=== PATIENT | male | born 1940 | race Caucasian/White ===

== ENCOUNTER 2024-01-05 00:34 | Inpatient (IN) | payer MEDICARE, BC ==
[2024-01-05] VITALS (18 sets, daily range): BP systolic 97–121; BP diastolic 48–71; PULSE 75–114; TEMP 97.5–98.4
[~2024-01-05] VITALS: Ht 177.8 cm; Wt 116.0 kg
[2024-01-05] MEDS ORDERED: Morphine 4 MG/ML VIAL IV PRN ×2 (02:15→15:45)
[2024-01-05] MEDS ORDERED: NS 1,000 ML IV SCH (02:15)
[2024-01-05] MEDS ORDERED: Acetaminophen 325 MG TAB PO PRN ×2 (02:15)
[2024-01-05] MEDS ORDERED: NS 500 ML IV ONE (03:00)
[2024-01-05] MEDS ORDERED: SYNTHROID0.05 MG/TA PO (03:18)
[2024-01-05] MEDS ORDERED: HYGROTON 2525 MG/TAB PO (03:20)
[2024-01-05] MEDS ORDERED: FARXIGA10 PO (03:21)
[2024-01-05] MEDS ORDERED: HCTZ 25MG TAB25 MG PO (03:21)
[2024-01-05] MEDS ORDERED: COZAAR100 MG PO (03:23)
[2024-01-05] MEDS ORDERED: MAG-OX 400400 MG/TAB PO (03:24)
[2024-01-05] MEDS ORDERED: LOPRESSOR 225 MG/TAB PO (03:25)
[2024-01-05 03:26] LABS: BASO % 0.3 % (0.0-2.0); GRAN # 8.1 K/mm3 (1.4-6.5); GRAN % 83.2 % (42.2-75.2); HEMATOCRIT 38.4 % (42.0-52.0); LYMPH # 0.7 K/mm3 (1.2-3.4); LYMPH % 7.1 % (20.0-51.0); MEAN CELL VOLUME 97 fl (80.0-100.0); MEAN CORPUSCULAR HEMOGLOBIN 30 pg (27-31); MEAN CORPUSCULAR HGB CONC 31 g/dl (33.0-37.0); MONO # 0.9 K/mm3 (0.1-0.6); MONO % 9.1 % (1.7-9.3); PLATELET COUNT 159 K/mm3 (130-400); RED BLOOD COUNT 3.95 M/mm3 (4.20-5.60); REDCELL DISTRIBUTION WIDTH-CV 14.5 % (11.5-14.5)
[2024-01-05] MEDS ORDERED: ACTOS30 MG PO (03:26)
[2024-01-05] MEDS ORDERED: ZOCOR5 MG PO (03:27)
[2024-01-05 03:47] LABS: ALBUMIN 2.5 g/dL (3.4-4.8); BILIRUBIN,TOTAL 0.9 mg/dL (0.2-1.2); CALCIUM 8.5 mg/dL (8.4-10.2); POTASSIUM 4.8 mEq/L (3.5-4.5); TOTAL PROTEIN 5.5 g/dl (6.2-8.1)
[2024-01-05 04:13] LABS: CREATININE, serum 2.27 mg/dL (0.72-1.25)
--- NOTE | 2024-01-05 05:30 | NUR ---
PT ARRIVED TO THE SURICAL FLOOR AROUND 0200HRS TO ROOM 345. PT A&O X 4; INITIAL VITAL SIGNS SHOWED PT TO BE HYPOTENSIVE AND TACHY, RENDERING PT A MEW SCORE OF 4. HOSPITALIST CALLED. 500ML BOLUS ORDERED AND GIVEN. PT'S VS IMPROVED. ADMISSIONS ASSESSMENT AND MED REC COMPLETE. PT ORIENTED TO ROOM AND HOSPITAL POLICY. PT DENIED GENERAL PAIN, CHEST PAIN, PALPITATIONS, SOB, N,V,D OR DIZZINESS. ALL QUESTIONS AND CONCERNS ADDRESSED. PT NPO; FALL PERCAUTIONS IN PLACE. BED ALARM ON. CALL LIGHT WITHIN REACH.
[2024-01-05] MEDS ORDERED: fentaNYL 50 MCG/ML 1 ML SYRINGE/VIAL [PACU/SDC ONLY] IV PRN (09:00)
[2024-01-05] MEDS ORDERED: Pantoprazole 40 MG in NS 10 ML IV SCH (09:00)
[2024-01-05] MEDS ORDERED: hydrALAZINE 20 MG/ML 1 ML VIAL IV PRN (09:00)
[2024-01-05] MEDS ORDERED: Ondansetron 4 MG/2 ML VIAL IV PRN ×2 (09:00→15:45)
--- NOTE | 2024-01-05 10:39 | NUR ---
Patient resting in bed, supportive family at bedside. has rounded and plan of care reviewed. Morphine treated RLQ pain. IVF as order. He has remained NPO. Denies nausea at this time. Davina nathan. Will monitor.
--- NOTE | 2024-01-05 11:00 | NUR ---
Patient ready for surgery, to the OR with Cinthia and with family to OR waiting room. NS to Bety. blood glucose 83, Cinthia made aware. Consent obtained for OR after patient spoke with . Rony up and voided prior to OR. will await his return
--- NOTE | 2024-01-05 11:54 | NUR ---
MARY BETH met with patient and his family to complete initial assessmnet for discharge planning. Patient consented to have family present for assessment. Patient verified that he and his Yaquelin live in [place], he sees Dr. Skyler Adams as his PCP and uses [facility] pharmacy in [place]. Patient states he has a cane, walker, shower chair, grab bars and toilet riser. Patient reports to be "mostly independent" and continues to drive himself to appointments. Patient states he has a completed DPOA listing his Yaquelin ([phone]) as his agent. His document is at home and family was encouraged to bring copy for patient's chart. Patient plans to return home at discharge. Discharge plan: Home
[2024-01-05] MEDS ORDERED: dexAMETHasone 10 MG/ML VIAL ONE (12:18)
[2024-01-05] MEDS ORDERED: fentaNYL 50 MCG/ML 2 ML VIAL ONE ×2 (12:18→15:17)
[2024-01-05] MEDS ORDERED: Succinylcholine PF 200 MG/10 ML SYRINGE IV ONE (12:18)
[2024-01-05] MEDS ORDERED: Lidocaine PF 2% (20 MG/ML) 5 ML VIAL ONE (12:18)
[2024-01-05] MEDS ORDERED: Ondansetron 4 MG/2 ML VIAL ONE (12:18)
[2024-01-05] MEDS ORDERED: ePHEDrine 50 MG/ML VIAL ONE (12:39)
--- NOTE | 2024-01-05 13:52 | NUR ---
Data: Purchasing Assistant spoke with family in surgery waiting area. Assessment: Family indicated no spiritual needs at this time. Plan of Care: Purchasing Assistant educated family members to request Purchasing Assistant support through the RN if desired at a later time. Family members thanked Purchasing Assistant for the visit. Chaplains will remain available as requested while this Patient is admitted to this hospital.
[2024-01-05] MEDS ORDERED: Indocyanine Green 25 MG KIT IV ONE (15:00)
[2024-01-05] MEDS ORDERED: Topical Skin Adhesive 1 EACH (1 ML) TOP ONE (15:23)
[2024-01-05] MEDS ORDERED: oxyCODONE 5 MG TAB PO PRN (15:45)
[2024-01-05] MEDS ORDERED: LR 1,000 ML IV SCH (15:45)
[2024-01-05] MEDS ORDERED: Naloxone 0.4 MG/ML VIAL IV PRN (15:45)
[2024-01-05] MEDS ORDERED: Acetaminophen 500 MG TAB PO SCH (16:38)
--- NOTE | 2024-01-05 18:36 | NUR ---
Patient resting in bed post op. Family as bedside. He has been sleepy, but easy to wake. Vss on O2. He reports nausea. Zofran PRN given. Reports abdominal pain throughout abdomen. Prn morphine given, patient reports no relief from tylenol as scheduled. Abdomen soft with robotic lap site and transverse incisions edges well approximated. Rob to DD with yellow clear urine. Scds BLE. IVF as ordered. Will report off to nightnurse
--- NOTE | 2024-01-05 20:35 | NUR ---
UPON SHIFT ASSESSMENT, PATIENT WAS AWAKE AND AXO X4. LAP SITES ARE GLUE TO AIR WITH TRANVERSE SITE EXHIBITING SCANT BLEEDING THAT CEASED WITH GAUZE. LT LOWER LAP SITE EXHIBITED SLIGHT BLEEDING WELL, PRESSURE DRESSING APPLIED BY SAMANTHA-JOSH, NO NEW BLEEDING. PATIENT'S POST OP VITALS ARE WNL AND TELE NS. PATIENT DENIES PAIN AT THIS TIME AND STATES NO OTHER NEEDS. CALL LIGHT WITHIN REACH AND BED ALARM.
--- NOTE | 2024-01-05 20:38 | NUR ---
RECIEVED PHONE CALL FROM PATIENT'S DAUGHTER. REPORT GIVEN THAT PATIENT SEEMS STOIC ABOUT POST-OP PAIN AND FACIAL GRIMACING COULD BE NOTED. PATIENT'S DAUGHTER REQUESTED ADDITIONAL PATIENT EDUCATION BE GIVEN TO ENCOURAGE PAIN MANAGEMENT. REASSESSED PAIN AND PATIENT STATES PAIN IS 5/10 WITH 4/10 BEING A MANAGEABLE LEVEL. PRN SINAN GIVEN
--- NOTE | 2024-01-05 22:53 | NUR ---
REASSESSED PAIN. PATIENT RATES PAIN REMAINING AT 5/10. MORPHIONE IV GIVEN.
[2024-01-06] VITALS (12 sets, daily range): BP systolic 96–138; BP diastolic 60–75; PULSE 68–88; TEMP 97.5–98.3
--- NOTE | 2024-01-06 02:18 | NUR ---
ROUNDED ON PATIENT. LILLIAM WAS ASLEEP AND EASY TO AWAKEN. PATIENT STATED, " I THINK I AM DOING OK. THE PAIN IS BETTER."
[2024-01-06 05:59] LABS: BASO % 0.1 % (0.0-2.0); GRAN # 7.1 K/mm3 (1.4-6.5); GRAN % 83.1 % (42.2-75.2); HEMOGLOBIN 10.8 g/dl (13.5-18.0); LYMPH # 0.7 K/mm3 (1.2-3.4); LYMPH % 7.7 % (20.0-51.0); MEAN CELL VOLUME 97 fl (80.0-100.0); MEAN CORPUSCULAR HEMOGLOBIN 30 pg (27-31); MEAN CORPUSCULAR HGB CONC 31 g/dl (33.0-37.0); MONO # 0.7 K/mm3 (0.1-0.6); MONO % 8.6 % (1.7-9.3); PLATELET COUNT 144 K/mm3 (130-400); RED BLOOD COUNT 3.58 M/mm3 (4.20-5.60); REDCELL DISTRIBUTION WIDTH-CV 14.6 % (11.5-14.5)
[2024-01-06 06:02] LABS: HEMATOCRIT 34.8 % (42.0-52.0)
[2024-01-06 06:17] LABS: ALBUMIN 2.1 g/dL (3.4-4.8); BILIRUBIN,TOTAL 0.4 mg/dL (0.2-1.2); CALCIUM 8.3 mg/dL (8.4-10.2); CREATININE, serum 2.12 mg/dL (0.72-1.25); POTASSIUM 4.9 mEq/L (3.5-4.5); TOTAL PROTEIN 5.5 g/dl (6.2-8.1)
--- NOTE | 2024-01-06 06:50 | NUR ---
PT RESTING IN BED. PT IN ON 2L NC. PT IS SR ON TELE. PT IS ON FALL PRECAUTIONS. PT IS AXOX4. PT HAS CALL LIGHT WITHIN REACH. PT INSTRUCTED TO CALL WITH ALL NEEDS.
[2024-01-06] MEDS ORDERED: Metoprolol Tartrate 25 MG TAB PO SCH (09:00)
--- NOTE | 2024-01-06 18:21 | NUR ---
1615-BOJORQUEZ CATHETER REMOVED WITH NO ISSUES. LILY CARE DONE. URINAL GIVEN AND PT INSTRUCTED TO CALL FOR HELP.
[2024-01-06] MEDS ORDERED: Atorvastatin 10 MG TAB PO SCH (21:00)
[2024-01-06] MEDS ORDERED: Simvastatin 10 MG **** subs to Atorvastatin 5 MG PO SCH (21:00)
--- NOTE | 2024-01-06 22:29 | NUR ---
Patient assessed at this time, see shift assessment, reports minimal pain at this time with PS of 3/10, scheduled tylenol given, has been passing gas but no BM yet, voided without problem at this time after kinney removal with INT infusing well on right forearm, denies N/V, denies further needs, call light and personal items within reach, will continue to monitor.
[2024-01-07] VITALS (12 sets, daily range): BP systolic 115–143; BP diastolic 70–86; PULSE 73–81; TEMP 97.4–98.4
--- NOTE | 2024-01-07 01:41 | NUR ---
Patient eating and drinking amandeep sol the PA, received an order to change it from q4 to ACHS marlene.
--- NOTE | 2024-01-07 04:51 | NUR ---
Patient complained of nausea and had yellow emesis approximately 20ml, medicated with zofran, will monitor.
--- NOTE | 2024-01-07 06:37 | NUR ---
Patient reports relief from pain and nausea, denies further needs.
[2024-01-07 07:05] LABS: BASO % 0.2 % (0.0-2.0); GRAN # 7.1 K/mm3 (1.4-6.5); HEMOGLOBIN 11.9 g/dl (13.5-18.0); LYMPH # 0.4 K/mm3 (1.2-3.4); LYMPH % 5.3 % (20.0-51.0); MEAN CELL VOLUME 97 fl (80.0-100.0); MEAN CORPUSCULAR HEMOGLOBIN 30 pg (27-31); MEAN CORPUSCULAR HGB CONC 31 g/dl (33.0-37.0); MEAN PLATELET VOLUME 10.1 fl (7.4-10.4); MONO # 0.8 K/mm3 (0.1-0.6); MONO % 9.1 % (1.7-9.3); PLATELET COUNT 183 K/mm3 (130-400); RED BLOOD COUNT 3.93 M/mm3 (4.20-5.60); REDCELL DISTRIBUTION WIDTH-CV 14.6 % (11.5-14.5)
[2024-01-07 07:30] LABS: ALBUMIN 2.2 g/dL (3.4-4.8); BILIRUBIN,TOTAL 0.5 mg/dL (0.2-1.2); CALCIUM 8.7 mg/dL (8.4-10.2); CREATININE, serum 2.44 mg/dL (0.72-1.25); POTASSIUM 4.7 mEq/L (3.5-4.5); TOTAL PROTEIN 5.9 g/dl (6.2-8.1)
[2024-01-07] MEDS ORDERED: Ondansetron 4 MG/2 ML VIAL IV ONE (09:15)
--- NOTE | 2024-01-07 09:15 | NUR ---
Patient resting in bed. Nausea this am. He has had emesis x2. Abdomen soft. Incision site edges well approximated. Hypoactive bowels. notified. Now dose of Zofran given. Diet to clears sparingly.
[2024-01-07] MEDS ORDERED: ASPIRIN E.C. 8181 MG PO (13:09)
[2024-01-07] MEDS ORDERED: OMEGA-3 1000 MG1 CAP PO (13:10)
[2024-01-07] MEDS ORDERED: NATURE'S BLEND500 M1 PO (13:11)
[2024-01-07] MEDS ORDERED: LR 1,000 ML IV SCH (14:00)
--- NOTE | 2024-01-07 14:40 | NUR ---
Patient continues to have intermittent nausea and vomiting. rounded and aware. Plan of care reviewed. IVF resumed. Patient feels more comfortable in the chair, offered to reposition patient and get him back to bed or ambulate. No interest. Chema pradhan.
--- NOTE | 2024-01-07 14:51 | NUR ---
SW received call from RN stating that patient's daughter in law called to discuss rehab for patient at discharge. SW reviewed chart and patient is functioning at baseline and stable for discharge to home when medically stable. SW met with patient, and son in room to discuss. states that their daughter in law is a nurse and helps guide them. Discussed patient's physical ability with therapy and recommendation is to discharge to home and patient not requiring rehab. voiced wanting HH referred to [facility]. Medicare.gov printed and provided to patient and . Patient agreeable to home health services. Referral faxed to [facility] Discharge plan: Home
--- NOTE | 2024-01-07 19:00 | NUR ---
Patient up to the bathroom, episode of incontinence. Liquid stool. Pericare given. Patient back to bed. Heel protectors on. Scd ble. IVF as ordered. VOiding in urinal. Bedside report to Cassie.
--- NOTE | 2024-01-07 19:07 | NUR ---
report received from colten traore. pt ambulated from recliner to bathroom without issue. pt now resting in bed. pt denies nausea and pain currently. fall precautions in place. call light in reach. all needs met at this time.
--- NOTE | 2024-01-07 20:02 | NUR ---
Patient had another episode of emesis. PRN zofran given. He is still wanting to sit up in chair, reports it is easier to vomit sitting up. He reports nausea increased after PO intake. Reminded him to keep PO intake sparingly.
--- NOTE | 2024-01-07 20:16 | NUR ---
shift assessment complete, see documentation. pt refused hs meds d/t repeated emesis when taking clears. pt continues to deny pain. fall precautions in place. call light in reach. all needs met at this time.
[2024-01-08] VITALS (11 sets, daily range): BP systolic 108–143; BP diastolic 69–77; PULSE 76–83; TEMP 97.6–98.3
[2024-01-08 08:08] LABS: BASO % 0.1 % (0.0-2.0); GRAN % 80.3 % (42.2-75.2); HEMATOCRIT 37.9 % (42.0-52.0); HEMOGLOBIN 12.3 g/dl (13.5-18.0); LYMPH # 0.6 K/mm3 (1.2-3.4); LYMPH % 8.5 % (20.0-51.0); MEAN CELL VOLUME 96 fl (80.0-100.0); MEAN CORPUSCULAR HEMOGLOBIN 31 pg (27-31); MEAN CORPUSCULAR HGB CONC 33 g/dl (33.0-37.0); MONO # 0.8 K/mm3 (0.1-0.6); MONO % 10.7 % (1.7-9.3); PLATELET COUNT 203 K/mm3 (130-400); RED BLOOD COUNT 3.93 M/mm3 (4.20-5.60); REDCELL DISTRIBUTION WIDTH-CV 14.4 % (11.5-14.5)
[2024-01-08 08:42] LABS: ALBUMIN 2.2 g/dL (3.4-4.8); BILIRUBIN,TOTAL 0.5 mg/dL (0.2-1.2); CALCIUM 8.7 mg/dL (8.4-10.2); CREATININE, serum 2.12 mg/dL (0.72-1.25); POTASSIUM 4.6 mEq/L (3.5-4.5)
--- NOTE | 2024-01-08 11:46 | NUR ---
PATIENT ALERT AND ORIENTED X4. VSS. PATIENT HERE FOR ROBOTIC APPY. PATIENT TAKING SIPS OF WATER AND GATORADE, FEELS SLIGHTLY NAUSEATED BUT DID NOT VOMIT THIS AM. IV TO RIGHT WRIST WITH LR RUNNING AT 75ML/HOUR. PATIENT ON RA. NO FURTHER NEEDS. CALL LIGHT IN REACH.
--- NOTE | 2024-01-08 12:29 | NUR ---
Clinical updates faxed to [facility]
[2024-01-08] MEDS ORDERED: Ondansetron 4 MG/2 ML VIAL IV PRN (18:00)
--- NOTE | 2024-01-08 18:44 | NUR ---
report received from owen traore. pt resting in bed. pt denies pain. fall precautions in place. call light in reach. all needs met at this time.
--- NOTE | 2024-01-08 20:10 | NUR ---
shift assessment complete, see documentation. pt tolerated hs meds well with small sips of water. pt denies nausea currently. fall precautions in place. call light in reach. all needs met at this time.
--- NOTE | 2024-01-08 22:38 | NUR ---
pt reporting increased nausea with no emesis. prn zofran administered per orders.
[2024-01-09] VITALS (12 sets, daily range): BP systolic 95–143; BP diastolic 61–77; PULSE 67–107; TEMP 97.4–98.6
--- NOTE | 2024-01-09 05:11 | NUR ---
pt refusing am PO meds d/t nausea. pt also reporting pain near his sternum. pt asymptomatic. updated EARNEST Mays. PRN morphine administered per orders.
[2024-01-09 06:36] LABS: BASO % 0.2 % (0.0-2.0); GRAN # 4.1 K/mm3 (1.4-6.5); GRAN % 72.2 % (42.2-75.2); HEMOGLOBIN 11.8 g/dl (13.5-18.0); LYMPH # 0.8 K/mm3 (1.2-3.4); LYMPH % 13.9 % (20.0-51.0); MEAN CELL VOLUME 94 fl (80.0-100.0); MEAN CORPUSCULAR HEMOGLOBIN 30 pg (27-31); MEAN CORPUSCULAR HGB CONC 32 g/dl (33.0-37.0); MEAN PLATELET VOLUME 9.6 fl (7.4-10.4); MONO # 0.7 K/mm3 (0.1-0.6); MONO % 12.8 % (1.7-9.3); PLATELET COUNT 214 K/mm3 (130-400); RED BLOOD COUNT 3.89 M/mm3 (4.20-5.60); REDCELL DISTRIBUTION WIDTH-CV 14.4 % (11.5-14.5)
[2024-01-09 06:44] LABS: HEMATOCRIT 36.7 % (42.0-52.0)
[2024-01-09 06:48] LABS: CALCIUM 8.6 mg/dL (8.4-10.2); CREATININE, serum 1.88 mg/dL (0.72-1.25); POTASSIUM 4.1 mEq/L (3.5-4.5)
--- NOTE | 2024-01-09 10:00 | NUR ---
Pt. sitting up in chair at this time. Pt. is A&OX3, assessment complete IV to rt. wrist patent, IV fluids infusing per orders. Abd. incisionw well aproximated. Pt. denies pain at this time. Call light within reach.
--- NOTE | 2024-01-09 14:49 | NUR ---
sheet ironworker faxed updates to [facility] [place]. Discharge Plan: home with HH
--- NOTE | 2024-01-09 19:17 | NUR ---
report received from jose alberto traore. pt resting in recliner watching tv. pt denies pain. pt reports passing gas. fall precautions in place. call light in reach. all needs met at this time.
--- NOTE | 2024-01-09 20:05 | NUR ---
shift assessment complete, see documentation. pt tolerated hs meds well with small sips of water. pt denies pain. fall precautions in place. call light in reach. all needs met at this time.
--- NOTE | 2024-01-09 20:38 | NUR ---
pt had emesis epsiode after med administration. pt vitals stable. prn zofran administered per orders.
[2024-01-09] MEDS ORDERED: Heparin 5,000 UNITS/ML 1 ML VIAL SQ SCH (21:00)
[2024-01-10] VITALS (13 sets, daily range): BP systolic 104–155; BP diastolic 60–84; PULSE 59–85; TEMP 97.3–97.9
[2024-01-10 06:28] LABS: CALCIUM 8.9 mg/dL (8.4-10.2); CREATININE, serum 1.8 mg/dL (0.72-1.25); POTASSIUM 4.2 mEq/L (3.5-4.5)
--- NOTE | 2024-01-10 08:00 | NUR ---
PATIENT IS A&O. VSS. REPORTS C/O INTERMITTENT N/V AND HASN'T TAKEN MUCH IN ORALLY. PATIENT DID TAKE HIS HALF PILL OF METOPROLOL THIS AM WITH 2 SIPS OTHERWISE HASN'T HAD MUCH OFF HIS CLEAR LIQUID BREAKFAST TRAY. CURRENTLY NO C/O NAUSEA. IV FLUIDS INFUSING VIA PUMP INTO LEFT WRIST IV. AM BS WAS 86. ABD IS DISTENDED, FIRM AND WITH HYPO BOWL SOUNDS. REPORTS HE HAS BELCHED BUT NOT PASSING FLATUS YET. HEAD TO TOE ASSESSMENT COMPLETE. SCD'S CURRENTLY OFF. PATIEINT SLEPT IN RECLINER PER HIS REQUEST LAST NIGHT AND IS UP IN CHAIR. ENCOURAGE ACTIVITY. SEE ORDERS FOR PT/OT/ST. HOSPITALIST TEAM ROUNDING. NO OTHER NEEDS AT THIS TIME. CALL LIGHT IN REACH.
[2024-01-10] MEDS ORDERED: Acetaminophen Oral Susp 325 MG/10.15 ML UD PO SCH (10:00)
--- NOTE | 2024-01-10 12:45 | NUR ---
ROUNDING. PLAN IS TO REPEAT A KUB TODAY, SEE ORDERS.
[2024-01-10] MEDS ORDERED: Acetaminophen Oral Susp 325 MG/10.15 ML UD PO PRN (13:00)
--- NOTE | 2024-01-10 14:20 | NUR ---
RADIOLOGY AT BEDSIDE TO OBTAIN KUB
--- NOTE | 2024-01-10 15:08 | NUR ---
aquacultural worker supervisor faxed updates to [facility]. Discharge Plan: home with HH
--- NOTE | 2024-01-10 20:49 | NUR ---
UPON SHIFT ASSESSMENT, CALL RECIEVED FROM SRINATH, [id number] TO LILLIAM. UPDATE WAS GIVEN. PATIENT CONTINUES TO EXPERINCE MILD NAUSEA WITH MED PASS, BUT HAS HAD NO EMESIS. BG 84 AND ENCOURAGED SMALL SIPS OF APPLE JUICE. PATIENT TOLERATED WELL. LAP SITES ARE CDI, HOWEVER, BRUISING CAN BE NOTED AROUND LT UPPER QUADRANT LAP SITE. PATIENT IS AXOX 4 AND CURRENT VS ARE WNL AND TELE IS NS. 3+EDEMA NOTED IN BILATERAL EXTREMETIES, LUNG SOUNDS CLEAR AND PATIENT DENIES SOA AND PAIN. PATIENT IN BEDSIDE RECLINER, FEET ELEVATED, CALL LIGHT WITHIN REACH AND CHAIR ALARM ON. LR RUNNING IN LT AC AT 75 ML/HR.
[2024-01-11] VITALS (12 sets, daily range): BP systolic 116–155; BP diastolic 61–83; PULSE 52–76; TEMP 97.6–98.2
--- NOTE | 2024-01-11 05:02 | NUR ---
INTERDRY PLACED WITHIN PANNUS. LAP SITE RESTS WITHIN THIS AREA-SUSCEPITABLE TO MOISTURE AND BACTERIA ACCUMULATION.
[2024-01-11 06:00] LABS: HEMATOCRIT 38.2 % (42.0-52.0); HEMOGLOBIN 12.3 g/dl (13.5-18.0); MEAN CELL VOLUME 96 fl (80.0-100.0); MEAN CORPUSCULAR HEMOGLOBIN 31 pg (27-31); MEAN CORPUSCULAR HGB CONC 32 g/dl (33.0-37.0); MEAN PLATELET VOLUME 9.4 fl (7.4-10.4); PLATELET COUNT 235 K/mm3 (130-400); RED BLOOD COUNT 3.97 M/mm3 (4.20-5.60); REDCELL DISTRIBUTION WIDTH-CV 14.2 % (11.5-14.5)
[2024-01-11 06:19] LABS: CALCIUM 8.5 mg/dL (8.4-10.2); CREATININE, serum 1.75 mg/dL (0.72-1.25); MAGNESIUM 1.8 mg/dL (1.6-2.6); POTASSIUM 3.9 mEq/L (3.5-4.5)
[2024-01-11 07:20] LABS: BAND 4 % (0-10); EOSINOPHIL 1 % (0-4); HYPOCHROMIA 2+; LYMPHOCYTE 20 % (20.0-51.0); NEUTROPHILS 65 % (42.0-75.2); PLATELET ESTIMATE NORMAL (NORMAL)
--- NOTE | 2024-01-11 08:15 | NUR ---
PT OFF FLOOR AT THIS TIME.
--- NOTE | 2024-01-11 08:40 | NUR ---
PATIENT BACK IN ROOM FROM CT
[2024-01-11] MEDS ORDERED: amLODIPine 5 MG TAB PO SCH (09:00)
--- NOTE | 2024-01-11 10:30 | NUR ---
AFTER MULTIPLE ATTEMPS OF INSERTING NG TUBE, BENITO MORENO WAS ABLE TO INSERT A 14 [place] IN PT'S LEFT NARE. NG TO LIS. NOTED 1500 CC GREEN GASTRIC CONENT. PT NOW NPO. NO FURTHER NEEDS.
--- NOTE | 2024-01-11 14:08 | NUR ---
organic lab worker faxed updates to [facility] [place]. SW received a call from them in the morning inquiring about an update and that they would not be able to see him if he left over the weekend. SW advised he was not feeling well this am and is still having further work up. Discharge Plan: home with
--- NOTE | 2024-01-11 14:20 | NUR ---
PATIENT DISCHARGING TO [facility] WITH DAUGHTER. INFO PACKET GIVEN TO DAUGHTER. CALLED REPORT TO NURSE AT [facility], ANSWERED QUESTIONS/CONCERNS. RN DC'D IV AND COVERED SITE WITH GAUZE & COBAN. PATIENT IS DRESSED, PACKED AND PERSONAL BELONGINGS SENT WITH DAUGHTER.
--- NOTE | 2024-01-11 15:00 | NUR ---
AIVS WAS UNABLE TO PLACE PICC LINE AFTER SEVERAL ATTEMPTS. RADIOLOGIST REPORTS IT APPEARS TO BE A VENOUS OBSTRUCTION AND SHE IS UNABLE TO THREAD CATH.
--- NOTE | 2024-01-11 15:10 | NUR ---
NOTIFIED SURGEON WHO WOULD LIKE TO GET PROCALAMINE STARTED IN PERIPHERAL IV. NOTIFIED DIETRARY WHO IS CONCERNED WITH AVAILABILITY OF PROCALAMINE AND IS CONTACTING PHARMACY. WAITING RETURN CALL
[2024-01-11] MEDS ORDERED: PPN IV SCH (16:00)
[2024-01-11] MEDS ORDERED: MAGNESIUM SULFATE IV SCH (16:00)
[2024-01-11] MEDS ORDERED: CALCIUM GLUCONATE 1000 MG IV SCH (16:00)
[2024-01-11] MEDS ORDERED: POTASSIUM PHOSPHATE IV SCH (16:00)
[2024-01-11] MEDS ORDERED: [UNRECOGNIZED DRUG - OTHER] IV SCH (16:00)
[2024-01-11] MEDS ORDERED: [UNRECOGNIZED DRUG - OTHER] IV SCH (16:00)
[2024-01-11 16:51] LABS: CALCIUM 8.4 mg/dL (8.4-10.2); CREATININE, serum 1.74 mg/dL (0.72-1.25); POTASSIUM 3.8 mEq/L (3.5-4.5)
[2024-01-11] MEDS ORDERED: Insulin Lispro (HumaLOG) SQ SCH (18:00)
--- NOTE | 2024-01-11 20:30 | NUR ---
UPON SHIFT ASSESSMENT, LILLIAM WAS RESTING IN BED AND EASY TO AWAKEN. HIS AFFECT APPEARS WEARY/TIRED. NG TUBE ON LI SUCTION AND GASTRIC CONTENTS GREEN. ABDOMEN SOFT TPN RUNNING IN PERIPHERAL LT FA IV-CLINDAMAX AND FAT EMULSION. VS ARE CURRENTLY WNL. CALL LIGHT WITHIN REACH, BED ALARM ON.
--- NOTE | 2024-01-11 21:07 | NUR ---
Call placed to hospitalistMarii. Patient on NG tube PO meds still on EMAR. TORB-Hospitalist to review and change route.
[2024-01-11] MEDS ORDERED: Metoprolol Tartrate 5 MG/5 ML VIAL IV SCH (21:15)
--- NOTE | 2024-01-11 21:42 | NUR ---
CALL PLACED TO HOSPITALISTCIARRA. TELE ALERTED-LILLIAM IS HAVING PVC ON T WAVE. TORB FOR STAT EKG GIVEN. NEW IV LINE PLACED IN LT FOREARM.
[2024-01-12] VITALS (12 sets, daily range): BP systolic 123–149; BP diastolic 58–87; PULSE 64–79; TEMP 97.5–97.9
--- NOTE | 2024-01-12 00:37 | NUR ---
CALL PLACED TO HOSPITALIST, TELE ALERT-PATIENT CONVERTING IN AND OUT OF AFIB AND AFLUTTER. STAT EKG ORDERED.
[2024-01-12 01:07] LABS: CALCIUM 8.4 mg/dL (8.4-10.2); CREATININE, serum 1.57 mg/dL (0.72-1.25); MAGNESIUM 1.8 mg/dL (1.6-2.6); POTASSIUM 3.5 mEq/L (3.5-4.5)
--- NOTE | 2024-01-12 03:07 | NUR ---
ROUNDED ON PATIENT. LILLIAM SLEEPING SOUNDLY. RR 14 VS ARE WNL. TELE STILL EXHIBITS AFIB-AFLUTTER. NO SIGNS OF DISTRESS.
--- NOTE | 2024-01-12 06:11 | NUR ---
NG TUBE STALLED DRAINAGE. DISCONNECTED SUCTION TUBING FROM NG CATHETER VALVE AND FLUSHED TO WALL CANISTER, SLUDGY GASTIC CONTENT CLEARED FROM TUBING. RECONNECTED TUBING TO NG CATHETER VALVE AND RESUMED L INT SUCTION. NG TUBE NOW PATENT AND DRAINING WELL.
[2024-01-12 06:29] LABS: CALCIUM 8.3 mg/dL (8.4-10.2); CREATININE, serum 1.55 mg/dL (0.72-1.25); MAGNESIUM 1.8 mg/dL (1.6-2.6); PHOSPHOROUS 2.9 mg/dL (2.3-4.7); POTASSIUM 3.5 mEq/L (3.5-4.5)
--- NOTE | 2024-01-12 08:00 | NUR ---
PATIENT IS A&O AND MORE AWAKE TODAY. VSS ON TELE. NOTED IRREGULAR HR IN THE 70-80'S. PATIENT HAS HX OF A-FIB. NO C/O PAIN OR NAUSEA. NG TO LIS WITH MOD AMOUNTS OF GREEN GASTRIC OUTPUT. ABD IS LESS DISTENDED AND WITH HYPO ACTIVE BOWL SOUNDS. NPO. PPN INFUSING VIA PUMP INTO LEFT FORARM IV. IV ABX INFUSING INTO OTHER LEFT FORARM IV VIA PUMP. VOIDING USING URINAL. PATIENT IS WEAK, PT/OT/ST ALL CONSULTED. ABD IS LESS DISTENDED WITH HYPO ACTIVE BOWL SOUNDS NOTED. NOT PASSING GAS, NO BM. NOTED +3 EDEMA IN BLE. HEEL PROTECTORS AND OVERLAY MATRESS INPLACE. HEAD TO TOE ASSESSMENT COMPLETE. NO OTHER NEEDS AT THIS TIME. CALL LIGHT IN REACH. BED ALARM ON.
--- NOTE | 2024-01-12 13:00 | NUR ---
PATIENT'S LEFT LATERAL ABD LAP SITE OOZING, CLEAR FLUID. PATIENT'S GOWN AND BEDDING WET. APPLIED 4X4 GAUZE, ABD & OCCLUSIVE FOAM TAPE. LAP SITE IS APPROXIMATED BUT OOZING MOD AMOUNTS OF CLEAR FLUID.
[2024-01-12] MEDS ORDERED: [UNRECOGNIZED DRUG - OTHER] IV SCH (16:00)
[2024-01-12] MEDS ORDERED: PPN IV SCH (16:00)
--- NOTE | 2024-01-12 17:55 | NUR ---
ONE OF PATIENT'S LEFT FORARM IV'S LEAKING, DC'D IV, CATH TIP INTACT AND PATIENT TOLERATED WELL. PPN INFUSING INTO OTHER LEFT FORARM IV WITH NO ISSUES.
--- NOTE | 2024-01-12 20:48 | NUR ---
Patient assessed at this time, see shift assessment, denies pain at this time, still with NG to LIS, mepilex to bottom CDI, repositioned patient to the left side, reports little bit of nausea but doesn't want any nausea meds at this time, still with PPN infusing well on left forearm, SCD's on, denies further needs, call light and personal items within reach, will continue to monitor.
--- NOTE | 2024-01-12 23:35 | NUR ---
Patient repositioned patient to his right side, IV zosyn given at this time, will continue to monitor.
[2024-01-13] VITALS (11 sets, daily range): BP systolic 98–147; BP diastolic 60–78; PULSE 59–82; TEMP 97.5–98.4
--- NOTE | 2024-01-13 01:27 | NUR ---
Repositioned patient to the left side, denies further needs.
--- NOTE | 2024-01-13 06:20 | NUR ---
Patient repositioned at this time, dressing to abdomen saturated, changed at this time with gauze, ABD and tape, had 600ml greenish output from NG tube from the entire shift.
[2024-01-13 07:08] LABS: CALCIUM 8.3 mg/dL (8.4-10.2); CREATININE, serum 1.33 mg/dL (0.72-1.25); MAGNESIUM 1.7 mg/dL (1.6-2.6); PHOSPHOROUS 2.9 mg/dL (2.3-4.7); POTASSIUM 3.7 mEq/L (3.5-4.5)
[2024-01-13] MEDS ORDERED: Phenol 1.4% Spray 180 ML BOTTLE MM PRN (10:30)
--- NOTE | 2024-01-13 10:30 | NUR ---
PATIENT HAS MULTIPLE IV MEDS AND PPN INFUSING INTO HIS ONLY PERIPHERAL SITE. BUS SYSTEM OPERATOR REPORTED IV WENT BAD LAST NITE AND STARTED ONE IV INTO LEFT HAND AND PPN IS INFUSING INTO THAT SITE. STARTED SECOND SITE INTO RIGHT WRIST. PATIENT RESTING UP IN BED WITH NO COMPLAINTS. NG TO LIS, NOTED 300CC OF DARK GREEN GASTRIC OUTPUT. VOIDING USING URINAL. A&O. VSS ON TELE. CALL LIGHT IN REACH. HEAD TO TOE ASSESSMENT COMPLETE, SEE CHARTING. BED ALARM ON.
[2024-01-13] MEDS ORDERED: PPN IV SCH (16:00)
[2024-01-13] MEDS ORDERED: [UNRECOGNIZED DRUG - OTHER] IV SCH (16:00)
--- NOTE | 2024-01-13 16:00 | NUR ---
PATIENT REPORTS HE FEELS LIKE HE MAY HAVE PASSED A LITTLE GAS AND MIGHT HAVE A BM. PCT REPORTS A VERY SMALL, LOOSE STOOL. PATIENT DENIES NAUSEA OR PAIN. RESTING WITHOUT COMPLAINTS.
--- NOTE | 2024-01-13 21:35 | NUR ---
Patient assessed at this time, see shift assessment, denies pain or discomfort, still with NG tube to LIS draining greenish output, with PPN infusing well on left hand, had incontinent loose stools an hour ago, pericare provided and repositioned to his right side, BS still hypoactive, still on tele, denies further needs, call light and personal items within reach, will continue to monitor.
[2024-01-14] VITALS (12 sets, daily range): BP systolic 92–151; BP diastolic 64–76; PULSE 64–87; TEMP 97.4–98.7
--- NOTE | 2024-01-14 00:15 | NUR ---
Repositioned patient at this time, changed mepilex dressing to bottom, redness noted but no open sores, will monitor.
--- NOTE | 2024-01-14 04:22 | NUR ---
Repositioned patient to his right side, fat emulsion done at this time, clinimix still infusing well on his left hand, NG tube still draining greenish fluid, denies pain and is ready to eat solid food, will continue to monitor.
[2024-01-14 07:11] LABS: CALCIUM 8.3 mg/dL (8.4-10.2); CREATININE, serum 1.27 mg/dL (0.72-1.25); MAGNESIUM 1.5 mg/dL (1.6-2.6); PHOSPHOROUS 3.1 mg/dL (2.3-4.7); POTASSIUM 3.7 mEq/L (3.5-4.5)
[2024-01-14] MEDS ORDERED: Glucagon 1 MG VIAL IM PRN (08:00)
[2024-01-14] MEDS ORDERED: Dextrose 50% Water 25 GM/50 ML SYRINGE IV PRN (08:00)
[2024-01-14] MEDS ORDERED: Dextrose (Glucose) 15 GM (4 x 3.75 GM) Chewable TABLET PACK PO PRN (08:00)
--- NOTE | 2024-01-14 08:09 | NUR ---
Patient awake and alert this am, offered to get to chair. He was very thankful to get out of bed. Sitting up in chair. Weak on feet, but steay with walker. Rating pain 2/10, reports minimal. NG to LIS, He is really wanting tube removed today. He reports appetite and wanting scrambled eggs. I did speak with radiology about gastrograffin & KUB. I also spoke with underwriting clerks supervisor, Opal about order to be sure I entered order correctly, she spoke with fractionation plant supervisor as well. Henrietta Braun also called this am and I did report to her possible thrush, patient tounged noted to be white this am. Patient also noted to have pressure sore/blister to heel and let her know as well. Mepilex dressings to be placed to heels. Mepilex dressing to coccyx, reddness noted. Chema pradhan
[2024-01-14] MEDS ORDERED: DIATRIZOATE MEGLUMINE PO ONE (08:45)
[2024-01-14] MEDS ORDERED: SODIUM PO ONE (08:45)
--- NOTE | 2024-01-14 09:07 | NUR ---
Patient remains up in chair. Gastrograffin via NG tube as ordered. NG tube clamped, reviewed with patient importance of calling if pain elevates or nauseated. Spoke again with Radiolgy who is aware of KUB at 1200. Morning medications given. DIRECTOR WORK assisting with hygiene. WIll monitor
--- NOTE | 2024-01-14 10:05 | NUR ---
Patient remains up in chair. COLLEGE SPORTS ASSISTANT placed chair cushion in chair. Petr took steps with therapy, but did become exhaused easy. Hospitalist team rounded, looked at patient tounge, she did not have concerns for thrush. Oral cares given, but tounge dose remain white in color. Also showed her patient heels and mepilex pad placed to heels. Will get Gaymar boots and supervisor jewelry department to get overlay matress. Will monitor
--- NOTE | 2024-01-14 10:31 | NUR ---
Spoke with operations accountant and she request MG replacement, Henrietta Braun made aware. Jess request talked to general surgery about plan and potential need for central line. Jo Ann pradhan
[2024-01-14] MEDS ORDERED: Magnesium Sulfate 2 GM/50 ML IV SOLN IV ONE (11:00)
--- NOTE | 2024-01-14 11:40 | NUR ---
hide worker was approached by JOSH Restrepo to discuss pt's discharge plan. She believes pt will need SNF as his activity tolerance is poor and he has a lot of medical needs to overcome. MARY BETH questioned this as PT states "home with ." She reports pt attempted to get up today and was exhausted and wiped out. SW later attempted to talk with pt who was asleep in the recliner and did not arouse to SW being in the room. MARY BETH left a voicemail to /DPOA, Yaquelin [phone] to discuss discharge plans. MARY BETH called son, Shabbir [phone] who's answered and reports Shabbir is at work. She states she can pass a message on to the appropriate family member as it is a "group effort." She reports pt's [id number], Erin is the nurse or pt's brother will contact SW. MARY BETH thanked her for this and informed her it was for discharge planning purposes. MARY BETH faxed updates to [facility] [place] as they called x2 requesting updates. Discharge Plan: SNF vs Home with HH
--- NOTE | 2024-01-14 12:37 | NUR ---
electronic instrument trades worker met with pt and Shabbir's in pt's room to present medicare.gov list of SNF's. They report wanting [id number], Erin to call SW and discuss because she is a nurse. Yaquelin, reports interest in [facility] as it is near her house to visit pt. They were informed to discuss options, inform SW, and this can always be changed if they think pt's mobility is better and they would like HH. SW awaiting call from Erin to move forward.
[2024-01-14] MEDS ORDERED: [UNRECOGNIZED DRUG - OTHER] IV SCH (16:00)
[2024-01-14] MEDS ORDERED: PPN IV SCH (16:00)
--- NOTE | 2024-01-14 16:13 | NUR ---
retail worker received a call from [id number], Erin [phone] to discuss. She reports concerns regarding the relayed information from her family about discharge. SW informed her she is not aware of a discharge date at this time and social work just starts discharge planning early. She reports she is a nurse and helps with decisions for the family. She questioned what the goals are, if the issue is/is not correcting itself, and if his gut is waking up. MARY BETH advised she can have the hospitalist call her to discuss. She was agreeable to this. Erin was informed they are only discussing care home home at this time and she reports being agreeable to SNF. [facility] [place], or [facility] as a second option. MARY BETH did advise they like to have multiple options in the event one facility declines or is full. She verbalized understanding of this and that pt's brother is in [place]. SW discussed OT's note and activity tolerance. Erin then reports she will talk with the family to get them up to speed and will also have conversations about LTC as Yaquelin, has memory problems and has a surgery upcoming herself. She reports her , Henry handles pt's finances. MARY BETH left a voicemail to Dr. Wilbert Torres to call pt's [id number] with an update. MARY BETH faxed referral to [facility] and [facility]. Discharge Plan: SNF
--- NOTE | 2024-01-14 19:35 | NUR ---
Patient resting in bed with Gaymar boots on BLE and specialty mattress on bed. New IV started this eveing to LFA and PPN as ordered. IV to Left hand DC. rounded, plan of care reviewed with patient and he did call family after reviewing KUB. I also spoke on phone to daughter in law after privacy pin given. Update given and questions answered. Patient middle lap site contineus to have serous drainage, new dressing placed. abdomen soft. NG tube remains clamped without nausea complaints, minimal pain complaints. Loose liquid incontince stools thorughout shift. Pericares given as needed and fresh linens. Bedside report to Douglas to resume cares.
--- NOTE | 2024-01-14 21:51 | NUR ---
Patient called stating he needed to urinate. This nurse to room and patient stated he was feeling very nauseas and had dry heaved a couple of times. Frankian given per dr order. Denies pain but states "I feel more pressure in my belly. NG tube clamped and noted to have green fluid backed up to the end dial flow -upon 1929 assessment drainage was not present. NG to LIS per dr order. Will reassess ouptut.
--- NOTE | 2024-01-14 23:00 | NUR ---
Reassessed output to NG@LIS. 900mls of dark green fluid noted. Cannister changed. Will reassess.
[2024-01-15] VITALS (17 sets, daily range): BP systolic 109–149; BP diastolic 50–77; PULSE 40–86; TEMP 96.9–99
--- NOTE | 2024-01-15 05:40 | NUR ---
Lipids completed infusing.
[2024-01-15 06:00] LABS: CALCIUM 8.5 mg/dL (8.4-10.2); CREATININE, serum 1.44 mg/dL (0.72-1.25); PHOSPHOROUS 3.5 mg/dL (2.3-4.7); POTASSIUM 3.7 mEq/L (3.5-4.5)
[2024-01-15] MEDS ORDERED: LR 1,000 ML IV SCH (06:00)
--- NOTE | 2024-01-15 06:12 | NUR ---
NG tube to LIS with a total of 1800mls dark green fluid out since 2200. Patient is ready to go to OR when ready.
[2024-01-15] MEDS ORDERED: Ondansetron 4 MG/2 ML VIAL ONE (06:47)
[2024-01-15] MEDS ORDERED: fentaNYL 50 MCG/ML 2 ML VIAL ONE (06:47)
[2024-01-15] MEDS ORDERED: Rocuronium 50 MG/5 ML Multi-Dose VIAL ONE (06:47)
[2024-01-15] MEDS ORDERED: Lidocaine PF 2% (20 MG/ML) 5 ML VIAL ONE (06:47)
--- NOTE | 2024-01-15 07:00 | NUR ---
PATIENT GOING DOWN TO OR VIA BED DURING BEDSIDE SHIFT REPORT. PERSONAL DEVELOPMENT COACH RN HAS CONSENT ON CHART AND PRE-OP FLUIDS INFUSING. PATIENT NOW OFF FLOOR.
[2024-01-15] MEDS ORDERED: fentaNYL 50 MCG/ML 1 ML SYRINGE/VIAL [PACU/SDC ONLY] IV PRN (07:15)
[2024-01-15] MEDS ORDERED: HYDROmorphone 1 MG/1 ML SYRINGE [PACU/SDC ONLY] IV PRN (07:15)
[2024-01-15] MEDS ORDERED: Ondansetron 4 MG/2 ML VIAL IV PRN (07:15)
[2024-01-15] MEDS ORDERED: hydrALAZINE 20 MG/ML 1 ML VIAL IV PRN (07:15)
[2024-01-15] MEDS ORDERED: Morphine 2 MG/1 ML VIAL [PACU/SDC ONLY] IV PRN (07:15)
[2024-01-15] MEDS ORDERED: BUPivacaine PF 0.5% w EPI (1:200,000) 10 ML VIAL SQ ONE ×2 (07:51)
[2024-01-15] MEDS ORDERED: Topical Skin Adhesive 1 EACH (1 ML) TOP ONE (07:52)
[2024-01-15] MEDS ORDERED: Indocyanine Green 25 MG KIT IV ONE (08:00)
[2024-01-15] MEDS ORDERED: Glycopyrrolate 0.2 MG/ML 1 ML VIAL ONE (08:05)
[2024-01-15] MEDS ORDERED: LR 1,000 ML IV ONE ×2 (08:28→14:23)
--- NOTE | 2024-01-15 09:40 | NUR ---
PATIENT IS BACK IN ROOM FROM SURGERY. ORIENTED BUT VERY DROWSY. FAMILY AT BEDSIDE. ABD WITH 3 NEW LAP SITES WITH GLUED CLOSURE. NG TO LIS WITH SMALL AMOUNTS OF LIGHT GREEN GASTRIC DRAINAGE. IV FLUIDS INFUSING INTO RIGHT IJ THAT WAS PLACED IN OR. VSS ON TELE. NO COMPLAINTS OF PAIN OR NAUSEA. HEAD TO TOE ASSESSMENT COMPLETE. CALL LIGHT IN REACH.
--- NOTE | 2024-01-15 12:45 | NUR ---
PATIENT C/O PAIN IN RLE GROIN/THIGH AREA, MOSTLY STATING IT HURTS IN HIS THIGH. REPOSITIONED RLE BUT IT IS NOT HELPING. RLE THIGH DOES SEEM A LITTLE SWOLLEN. NOTIFIED HOSPITALIST, SEE ORDERS FOR ULTRA SOUNDS. CALLED [facility] AND LET THEM KNOW OF THE ORDER, THEY WILL BE UP THIS AFTERNOON
--- NOTE | 2024-01-15 13:44 | NUR ---
furniture lumber production worker spoke with Manas at [facility] who reports they decline pt as they cannot accept bariatric patients. SW spoke with Juana at [facility] who reports their DON is reviewing pt. MARY BETH received a call from Mayte with [facility] in [place], requesting an update. MARY BETH provided the family is interested in SNF, but has not made any decisions quite yet. Discharge Plan: SNF
--- NOTE | 2024-01-15 15:25 | NUR ---
mosaic worker received a call from Juana with [facility] informing SW they can accept pt. SW left a voicemail to [id number], Erin to provide update. Discharge Plan: [facility], if agreeable
[2024-01-15] MEDS ORDERED: TPN IV SCH (16:00)
[2024-01-15] MEDS ORDERED: [UNRECOGNIZED DRUG - OTHER] IV SCH (16:00)
[2024-01-15] MEDS ORDERED: Insulin Lispro (HumaLOG) SQ SCH (18:00)
--- NOTE | 2024-01-15 18:50 | NUR ---
report received from odalys traore. pt resting in bed watching tv. NG continues to LIS. TPN continues to RIJ. pt denies pain. fall precautions in place. call light in reach. all needs met at this time.
--- NOTE | 2024-01-15 22:56 | NUR ---
shift assessment complete, see documentation. pt tolerated hs meds well. pt denies pain. NG continues to LIS. fall precautions in place. call light in reach. all needs met at this time.
--- NOTE | 2024-01-15 23:57 | NUR ---
pt reporting increased nausea. PRN zofran administered per orders.
[2024-01-16] VITALS (12 sets, daily range): BP systolic 105–137; BP diastolic 52–78; PULSE 78–100; TEMP 97.6–98.6
[2024-01-16 06:12] LABS: BASO % 0.3 % (0.0-2.0); EOS % 0.1 % (0.0-4.0); GRAN # 11.6 K/mm3 (1.4-6.5); GRAN % 85.1 % (42.2-75.2); HEMATOCRIT 38.6 % (42.0-52.0); HEMOGLOBIN 12.4 g/dl (13.5-18.0); LYMPH # 0.7 K/mm3 (1.2-3.4); LYMPH % 5.3 % (20.0-51.0); MEAN CELL VOLUME 97 fl (80.0-100.0); MEAN CORPUSCULAR HEMOGLOBIN 31 pg (27-31); MEAN CORPUSCULAR HGB CONC 32 g/dl (33.0-37.0); MEAN PLATELET VOLUME 10.2 fl (7.4-10.4); MONO # 1.1 K/mm3 (0.1-0.6); PLATELET COUNT 225 K/mm3 (130-400); RED BLOOD COUNT 3.98 M/mm3 (4.20-5.60); REDCELL DISTRIBUTION WIDTH-CV 14.3 % (11.5-14.5)
[2024-01-16 06:22] LABS: ALBUMIN 1.9 g/dL (3.4-4.8); BILIRUBIN,TOTAL 0.6 mg/dL (0.2-1.2); CALCIUM 8.4 mg/dL (8.4-10.2); CREATININE, serum 1.53 mg/dL (0.72-1.25); MAGNESIUM 1.6 mg/dL (1.6-2.6); PHOSPHOROUS 2.9 mg/dL (2.3-4.7); POTASSIUM 4.2 mEq/L (3.5-4.5); TOTAL PROTEIN 5.4 g/dl (6.2-8.1)
--- NOTE | 2024-01-16 06:35 | NUR ---
PT RESTING IN BED. PT IS ON 1L NC. PT IS SR ON TELE. PT HAS NG TO LIS WITH BROWN OUTPUT. PT IS SLEEPY BUT ORIENTED. PT IS A FALL RISK AND BEDALARM ACTIVE. PT HAS CALL LIGHT AND INSTRUCTED TO CALL [facility] ALL NEEDS.
[2024-01-16] MEDS ORDERED: TPN (Clinimix-E 8%/14%) 1,000 ML IV SCH (08:55)
--- NOTE | 2024-01-16 13:06 | NUR ---
workers' compensation claims supervisor received a call back from [id number], Erin De Anda who reports pt just had surgery yesterday and the told her "he is staying another 7 days." MARY BETH advised she was not the one discharging pt, they again, just start discharge planning processes early. MARY BETH informed her [facility] has accepted pt and wanted to see if they accept this facility. She reports they do accept and are allowing for them to receive updates from MARY BETH so pt can discharge there. MARY BETH informed her she sends clinical updates so they know what is going on and that the family is still interested. No further questions. MARY BETH faxed updates to [facility] in [place]. Discharge Plan: [facility]
[2024-01-16] MEDS ORDERED: MAGNESIUM SULFATE IV SCH (16:00)
[2024-01-16] MEDS ORDERED: [UNRECOGNIZED DRUG - OTHER] IV SCH (16:00)
--- NOTE | 2024-01-16 19:03 | NUR ---
report received from lovely traore. pt denies pain. sitting in recliner watching tv. fall precautions in place. call light in reach. all needs met at this time.
--- NOTE | 2024-01-16 22:03 | NUR ---
shift assessment complete, see documentation. pt tolerated hs meds well. pt denies pain or nausea. NG to LIS still providing drainage. pt reported a sore bottom. redness continues to pt bottom without open areas, new mepilex applied. pt noted to have boggy left heel and bilateral red heels, new mepilex applied along with heel protectors. pt tolerating lipids at 21ml/hr and TPN at 60ml/hr as ordered to RIJ. pt tolerated abx without issue. fall precautions in place. call light in reach. all needs met at this time.
[2024-01-17] VITALS (12 sets, daily range): BP systolic 103–143; BP diastolic 41–76; PULSE 68–90; TEMP 97.3–98.6
--- NOTE | 2024-01-17 06:40 | NUR ---
Pt sitting up in chair. Call light in reach and chair alarm on. Denies needs at this time.
--- NOTE | 2024-01-17 07:58 | NUR ---
Pt sitting up in chair. Pt A&Ox4. VSS. S1S2. Clear lungs on RA. ABD round, soft, non-tender to palpation. Hypoactive bowel sounds. NG tube in L nare at 33, attached to LIS with brown drainage in tube and canister. Pt denies n/v. Pt reports passing some flatus, but not a lot. Pt denies pain. Palpable pulses in all extremiteis. Sacrum is red, intact skin. Mepilex pad in place and waffle cushion on chair. Heels elevated and mepilex pads in place. Heel boots on bilaterally. INTs in bilateral forearms are patent, no issues. RIJ has positive blood return in all lines. Blue port has TPN running at 60 cc/hr. No further needs. Call light in reach.
[2024-01-17] MEDS ORDERED: TPN (Clinimix-E 8%/14%) 1,000 ML IV SCH (08:55)
--- NOTE | 2024-01-17 09:20 | NUR ---
Strip Picker called nurse. Reported poor signal. Checked leads and stickers. All attached - better signal.
--- NOTE | 2024-01-17 09:28 | NUR ---
Per Dr Torres, no loose stools, only had one loose stool yesterday. D/C Contact Plus Precautions.
--- NOTE | 2024-01-17 11:10 | NUR ---
rigging up worker faxed updates to [facility]. SW received a call from LETA Ruff at [facility] reporting they are having difficulty obtaining TPN and questioning if pt needs it. SW advised she spoke sonny Christine and Recreation Therapist Anita who advised they are not sure at this time as pt has been slow to progress overall. She reports if he does need it upon discharge, they would need at least 2-3 days notice to order if from [facility] in [place]. SW advised they will keep them updated. Discharge Plan: [facility]
--- NOTE | 2024-01-17 12:58 | NUR ---
Per Dr Torres, started clamping trial. Pt denies n/v at this time.
[2024-01-17] MEDS ORDERED: TPN IV SCH (16:00)
[2024-01-17] MEDS ORDERED: [UNRECOGNIZED DRUG - OTHER] IV SCH (16:00)
--- NOTE | 2024-01-17 20:00 | NUR ---
PATIENT IS ORIENTED BUT DROWSY. RESTING COMFORTABLY IN BEDSIDE CHAIR WITH BLE ELEVATED. VSS. NO COMPLAINTS. ABD LAP SITES ARE ALL WELL APPROXIMATED & ABD TRANSVERSE WITH GLUED CLOSURES. NG CLAMPED. TOLERATING CLEARS. TPN INFUSING INTO RIGHT IJ. RIGHT & LEFT HAND IV'S TO INT. HEAD TO TOE ASSESSMENT COMPLETE, SEE SHIFT ASSESSMENT. HS MEDS GIVEN. NO OTHER NEEDS. CALL LIGHT IN REACH. CHAIR ALARM ON.
[2024-01-18] VITALS (12 sets, daily range): BP systolic 109–134; BP diastolic 52–80; PULSE 67–90; TEMP 97.5–98.1
[2024-01-18 07:16] LABS: CALCIUM 8.2 mg/dL (8.4-10.2); CREATININE, serum 1.66 mg/dL (0.72-1.25); MAGNESIUM 1.9 mg/dL (1.6-2.6); PHOSPHOROUS 2.3 mg/dL (2.3-4.7); POTASSIUM 3.9 mEq/L (3.5-4.5)
--- NOTE | 2024-01-18 08:30 | NUR ---
Pt reporting nausea. Administered Zofran. Pt did not eat anything off breakfast tray. Assessed placement of NG tube. Tube was in esophagus at 33 cm. Remeasured Pt. Tube needs to be around 55 cm. Advanced tube to 55. Pt tolerated well. Immediately moises back 100 cc of green/brown fluid. Placed NG to LIS. Pt has call light in reach.
[2024-01-18] MEDS ORDERED: TPN (Clinimix-E 8%/14%) 1,000 ML IV SCH (08:51)
[2024-01-18] MEDS ORDERED: NS IV ONE (10:45)
[2024-01-18] MEDS ORDERED: SODIUM PHOSPHATE IV ONE (10:45)
[2024-01-18] MEDS ORDERED: [UNRECOGNIZED DRUG - OTHER] IV ONE (10:45)
--- NOTE | 2024-01-18 12:21 | NUR ---
Called Dr Torres to verify if Pt is able to clear liquids with nausea this AM. Pt is passing flatus, no BM. Hypoactive bowel sounds. Per Dr Torres, clamp NG tube and retry clear liquids.
[2024-01-18] MEDS ORDERED: Phenol 1.4% Spray 180 ML BOTTLE MM PRN (14:45)
--- NOTE | 2024-01-18 15:38 | NUR ---
MARY BETH faxed clinical updates to [facility]
[2024-01-18] MEDS ORDERED: TPN IV SCH (16:00)
[2024-01-18] MEDS ORDERED: [UNRECOGNIZED DRUG - OTHER] IV SCH (16:00)
--- NOTE | 2024-01-18 16:45 | NUR ---
Pt reporting mild headache. Offered wet washclothe or medication. pt declined both at this time.
--- NOTE | 2024-01-18 19:22 | NUR ---
Reviewed assessments and charting completed by DANIELE Hughes. Agree with assessments
[2024-01-19] VITALS (12 sets, daily range): BP systolic 114–145; BP diastolic 63–83; PULSE 73–95; TEMP 97.4–98.4
--- NOTE | 2024-01-19 06:30 | NUR ---
PT TRIED GETTING INTO BED AFTER MIDNIGHT VS, WAS UNABLE TO GET COMFORTABLE, BACK UP TO CHAIR AND MORPHINE GIVEN IV FOR PAIN 02/01 X1, PT ABLE TO SLEEP AFTERWARDS. TOLERATING NG CLAMPED, TAKING SMALL AMTS OF CLEARS, NO N/V OR INCREASED ABD DISTENTION. VOIDING USING URINAL. SSI X2 THIS SHIFT. TPN/LIPIDS INFUSING PER TLRIJ CENTRAL LINE.
--- NOTE | 2024-01-19 06:48 | NUR ---
Pt sitting up in chair. Asked for ice water, provided. No further needs at this time. Call light in reach and chair alarm on.
[2024-01-19 06:52] LABS: MEAN CELL VOLUME 96 fl (80.0-100.0); MEAN CORPUSCULAR HEMOGLOBIN 31 pg (27-31); MEAN CORPUSCULAR HGB CONC 32 g/dl (33.0-37.0); MEAN PLATELET VOLUME 10.6 fl (7.4-10.4); PLATELET COUNT 265 K/mm3 (130-400); RED BLOOD COUNT 3.57 M/mm3 (4.20-5.60); REDCELL DISTRIBUTION WIDTH-CV 14.4 % (11.5-14.5)
[2024-01-19 06:58] LABS: CALCIUM 8.2 mg/dL (8.4-10.2); CREATININE, serum 1.63 mg/dL (0.72-1.25); POTASSIUM 3.7 mEq/L (3.5-4.5)
[2024-01-19 06:59] LABS: HEMATOCRIT 34.3 % (42.0-52.0)
[2024-01-19 08:11] LABS: BAND 5 % (0-10); EOSINOPHIL 5 % (0-4); LYMPHOCYTE 13 % (20.0-51.0); NEUTROPHILS 65 % (42.0-75.2); PLATELET ESTIMATE NORMAL (NORMAL)
--- NOTE | 2024-01-19 08:45 | NUR ---
Pt sitting up in chair. A&Ox4. VSS. S1S2. Clear lungs on RA. ABD round, soft, non-tender with audible bowel sounds. Palpable pulses in all extremities. +2 edema in BLE and +1 edema in BUE. INTs in R and L forearms patent, no issues. Central line to RIJ: Blue has TPN running at 60 cc/hr. Brown and white ports are patent with positive blood flow. NG tube was at 50 cm, unable to auscultate for correct placement. Advanced tube to 60 cm - auscultated for placement. Pt had 50 cc green residue in stomach. Pt report he had just finished drinking breakfast about 20 minutes ago. Tube secured at 60 cm. Skin under pannus was moist, and had crusting layers. Cleaned area. Arms and legs are dry - applied lotion. Heels are red with mepilex in place. Pt had watery BM - changed depends and mepilex on botom. Sacral area is red, blanchable and small amount of blood on wipes when cleaning. Skin tear at end of coxcyx - applied layer of barrier cream. 1 cm x 1 cm ulcer on posterior R thigh - applied barrier cream and mepilex pad. Pt denied pain, n/v, bloating. No further needs. Call light in reach and chair alarm on.
[2024-01-19] MEDS ORDERED: TPN (Clinimix-E 8%/14%) 1,000 ML IV SCH (08:51)
--- NOTE | 2024-01-19 12:44 | NUR ---
Data: Patient declined spiritual care visit offered during [employer] rounds. Patient has two visitors. Assessment: None at this time. Plan of Care: Chaplains will remain available as needed/requested while Patient is admitted to this hospital.
--- NOTE | 2024-01-19 13:19 | NUR ---
Removed Pt's NG tube. Pt tolerated procedure well. Notified Pt of Full Liquid Diet. Pt seemed to cheer up. No further needs. Call light in reach and chair alarm on.
--- NOTE | 2024-01-19 15:26 | NUR ---
Pt walked approximately 50ft with minimal 1 assist and walker. Pt sitting in chair with feet propper up. No further needs. Call light in reach and chair alarm on.
[2024-01-19] MEDS ORDERED: MAGNESIUM SULFATE IV SCH (16:00)
[2024-01-19] MEDS ORDERED: [UNRECOGNIZED DRUG - OTHER] IV SCH (16:00)
[2024-01-20] VITALS (11 sets, daily range): BP systolic 114–144; BP diastolic 53–77; PULSE 81–94; TEMP 97.4–98.2
--- NOTE | 2024-01-20 07:20 | NUR ---
Patient sitting up in chair. Bedside report obtained. Patient requesting emesis basis, nausea after IV morphine. Am labs drawn via brown port via central line per protocol. TPN off 10 minutes. Will monitor
[2024-01-20 07:25] LABS: HEMOGLOBIN 10.7 g/dl (13.5-18.0); MEAN CELL VOLUME 95 fl (80.0-100.0); MEAN CORPUSCULAR HEMOGLOBIN 31 pg (27-31); MEAN CORPUSCULAR HGB CONC 32 g/dl (33.0-37.0); MEAN PLATELET VOLUME 10.1 fl (7.4-10.4); PLATELET COUNT 232 K/mm3 (130-400); RED BLOOD COUNT 3.48 M/mm3 (4.20-5.60); REDCELL DISTRIBUTION WIDTH-CV 14.7 % (11.5-14.5)
[2024-01-20 07:28] LABS: HEMATOCRIT 33.2 % (42.0-52.0)
[2024-01-20 07:57] LABS: BAND 2 % (0-10); EOSINOPHIL 5 % (0-4); LYMPHOCYTE 7 % (20.0-51.0); NEUTROPHILS 77 % (42.0-75.2); PLATELET ESTIMATE NORMAL (NORMAL)
[2024-01-20] MEDS ORDERED: TPN (Clinimix-E 8%/14%) 1,000 ML IV SCH (08:55)
--- NOTE | 2024-01-20 09:20 | NUR ---
Patient up in chair this am, minimal interest in diet. Just wanting water. TPN as ordered to central line. REpositioned in chair. Pericares given. Assessment completed. Chema pradhan
--- NOTE | 2024-01-20 10:12 | NUR ---
MARY BETH sent clinical updates to [facility]. Discharge plan: SNF
--- NOTE | 2024-01-20 11:00 | NUR ---
Patient family at bedside, daughter in laws concerns verbalized to and . Petr remains in chair. DIetary to discuss low fiber diet and ensure ordered. Will monitor
--- NOTE | 2024-01-20 14:00 | NUR ---
Patient family home for the day. Petr not excited to get back to bed, but we discussed the importance of getting his feet elevated and getting off bottom. He was agreeable. New hospital bed provided to see if it would be more comfortable for patient. One assist, no incontince at this time. Will monitor
--- NOTE | 2024-01-20 14:47 | NUR ---
Patient resting in bed. Called out about being uncomfortable. Refusing SCDS and Gaymar boots. Reports he can't rest with them on. BLE elevated on pillows. Patient repositioned in bed to right side. Will monitor
--- NOTE | 2024-01-20 15:23 | NUR ---
Patient wanting back to chair, but agreeable to lay on the left side, repositioned with pillows. Will monitor
[2024-01-20] MEDS ORDERED: Phenol 1.4% Spray 180 ML BOTTLE MM PRN (15:30)
[2024-01-20] MEDS ORDERED: [UNRECOGNIZED DRUG - OTHER] IV SCH (16:00)
[2024-01-20] MEDS ORDERED: TPN IV SCH (16:00)
--- NOTE | 2024-01-20 16:30 | NUR ---
Patient assisted back chair for dinner. Tpn as ordered. New central line dressing and caps. Encouraged PO intake, but to take it slow. Will monitor.
--- NOTE | 2024-01-20 19:47 | NUR ---
Patient sitting up in chair. He had minimal dinner intake, PO fluids encouraged. Report to jian
[2024-01-21] VITALS (12 sets, daily range): BP systolic 128–157; BP diastolic 63–85; PULSE 82–96; TEMP 97.4–98.4
[2024-01-21 06:13] LABS: MEAN CELL VOLUME 97 fl (80.0-100.0); MEAN CORPUSCULAR HEMOGLOBIN 31 pg (27-31); MEAN CORPUSCULAR HGB CONC 32 g/dl (33.0-37.0); MEAN PLATELET VOLUME 10.6 fl (7.4-10.4); PLATELET COUNT 241 K/mm3 (130-400); RED BLOOD COUNT 3.52 M/mm3 (4.20-5.60); REDCELL DISTRIBUTION WIDTH-CV 14.9 % (11.5-14.5)
[2024-01-21 06:25] LABS: CALCIUM 8.5 mg/dL (8.4-10.2); CREATININE, serum 1.75 mg/dL (0.72-1.25); MAGNESIUM 1.9 mg/dL (1.6-2.6); PHOSPHOROUS 2.5 mg/dL (2.3-4.7); POTASSIUM 4.1 mEq/L (3.5-4.5)
[2024-01-21 06:29] LABS: HEMATOCRIT 34.2 % (42.0-52.0)
[2024-01-21 07:41] LABS: BAND 3 % (0-10); EOSINOPHIL 4 % (0-4); LYMPHOCYTE 10 % (20.0-51.0); NEUTROPHILS 74 % (42.0-75.2); PLATELET ESTIMATE NORMAL (NORMAL)
--- NOTE | 2024-01-21 08:45 | NUR ---
Petr sitting up in chair. Assisted to butter pancake and cut up. PO intake encouraged. Prior to breakfast. Bedbath and incontince cares provided. New linens. Assessment completed. Will monitor
[2024-01-21] MEDS ORDERED: TPN (Clinimix-E 8%/14%) 1,000 ML IV SCH (08:55)
--- NOTE | 2024-01-21 10:00 | NUR ---
Hospitalist team rounded and plan of care reviewed. Orders obtained.
--- NOTE | 2024-01-21 11:35 | NUR ---
Patient 2 assisted to bedside commode. Continues to have loose incontinent stool. Stool samples sent to lab. Pericares given, excorations to coccyx and thighs. New mepilex dressing applied, barrier cream applied. Patient offered to get in bed, but not willing to at this time.
[2024-01-21] MEDS ORDERED: Albumin (Human) 25 G/100 ML IVPB IV SCH (12:00)
--- NOTE | 2024-01-21 13:00 | NUR ---
Petr assisted with lunch tray. PO intake encouraged. Assisted to cut up chicken. Feet elevated. Albumin as ordered. Chema pradhan
[2024-01-21 13:30] LABS: ALBUMIN 1.9 g/dL (3.4-4.8); BILIRUBIN,DIRECT 0.3 mg/dL (0.0-0.5); BILIRUBIN,TOTAL 0.5 mg/dL (0.2-1.2); TOTAL PROTEIN 6.2 g/dl (6.2-8.1)
[2024-01-21 13:43] LABS: CLOSTRIDIUM DIFF A/B NEG
--- NOTE | 2024-01-21 14:39 | NUR ---
MARY BETH student faxed clinical updates to [facility]. Discharge Plan: SNF
--- NOTE | 2024-01-21 14:50 | NUR ---
OT assisted with pericares and repositioning in chair. Incontinence stools continues. CDIFF negative.
[2024-01-21] MEDS ORDERED: TPN IV SCH (16:00)
[2024-01-21] MEDS ORDERED: MULTIVITAMINS IV SCH (16:00)
--- NOTE | 2024-01-21 18:20 | NUR ---
Update given over phone to daughter in law, questions answered.
--- NOTE | 2024-01-21 19:32 | NUR ---
report received from colten traore. pt ambulated to BSC without issue, diarrhea continues. pt but noted to have open sores, tuan care/barrier cream and mepilex applied. pt assisted to rest in bed. L heel also noted to have open blister with bilateral bogginess to heels, mepilex applied and feet elevated. pt denies pain. albumin running to RIJ without issue @60ml/hr. TPN running to RIJ @40ml/hr. Lipids running to RIJ at 21ml/hr. pt tolerating care well. fall precautions in place. call light in reach. all needs met at this time.
--- NOTE | 2024-01-21 19:43 | NUR ---
Petr 2 assisted to bedside commode, large loose stool. Pericares provided with new allyven foam dressing intact and barrier cream applied, excoration to coccyx worsening with all of the loose incontinent stools. Patient agreeable to try to lay in bed to while. Turned to right side with multiple pillows for positioning. Refused Gaymar boots. Central line with Trp and Albumin as ordered. Bedside report to [facility] as ordered
--- NOTE | 2024-01-21 21:53 | NUR ---
shift assessment complete, see documentation. pt tolerated hs meds well. abx running to RIJ without issue. TPN and lipids continue running to RIJ well. fall precautions in place. call light in reach. all needs met at this time.
[2024-01-22] VITALS (11 sets, daily range): BP systolic 108–128; BP diastolic 61–75; PULSE 68–84; TEMP 97.4–98.2
[2024-01-22 06:09] LABS: MEAN CELL VOLUME 97 fl (80.0-100.0); MEAN CORPUSCULAR HGB CONC 32 g/dl (33.0-37.0); MEAN PLATELET VOLUME 10.6 fl (7.4-10.4); PLATELET COUNT 197 K/mm3 (130-400); RED BLOOD COUNT 3.05 M/mm3 (4.20-5.60)
[2024-01-22 06:14] LABS: HEMATOCRIT 29.5 % (42.0-52.0); HEMOGLOBIN 9.4 g/dl (13.5-18.0); MEAN CORPUSCULAR HEMOGLOBIN 31 pg (27-31)
[2024-01-22 06:23] LABS: ALBUMIN 2.4 g/dL (3.4-4.8); BILIRUBIN,TOTAL 0.5 mg/dL (0.2-1.2); CALCIUM 8.4 mg/dL (8.4-10.2); CREATININE, serum 1.86 mg/dL (0.72-1.25); POTASSIUM 3.8 mEq/L (3.5-4.5); TOTAL PROTEIN 5.9 g/dl (6.2-8.1)
[2024-01-22 08:18] LABS: BAND 1 % (0-10); BASOPHIL 1 % (0-2); EOSINOPHIL 4 % (0-4); HYPOCHROMIA 1+; LYMPHOCYTE 9 % (20.0-51.0); NEUTROPHILS 79 % (42.0-75.2); PLATELET ESTIMATE NORMAL (NORMAL)
--- NOTE | 2024-01-22 09:00 | NUR ---
PT ALERT AND SITTING IN CHAIR. VSS. PT REPORTED 5/10 PAIN IN HIS HANDS AND EXPLAINED THAT IT WAS MORE SWOLLEN. TYLENOL GIVEN PER ORDER. MEPILEX TO PT'S BOTTOM AND LEFT HEEL. PT TOLERATING FOOD. EATING MINIMAL. CALL LIGHT WITHIN REACH. NO FURTHER NEEDS.
[2024-01-22] MEDS ORDERED: Furosemide 40 MG/4 ML VIAL IV ONE (09:15)
--- NOTE | 2024-01-22 12:48 | NUR ---
[employer] spoke with Anita Dietitian who advised she plans to stop the TPN today. MARY BETH contacted Juana at [facility] and faxed clinical updates. MARY BETH also made contact with patient's daughter in law, Zahra to check in. Zahra stated they have no questions for SW at this time, just waiting to see how patient responds. Zahra advised patient has been lethargic and she worries about him ever returning to his previous baseline. MARY BETH advised Zahra she will follow along for any further recommendations and continue to communicate with [facility].
--- NOTE | 2024-01-22 18:44 | NUR ---
PT STATED IT WAS DIFFICULT TO EAT HIS FOOD AND THAT IT WAS TOO HARD. GAVE PATIENT PUDDING AND OFFERED TO GET HIM A NEW TRAY. PT DENIED. CALL LIGHT WITHIN REACH. NO FURTHER NEEDS.
--- NOTE | 2024-01-22 21:00 | NUR ---
PT A&O X4 SITTING IN CHAIR. VSS. DENYING PAIN OR N/V. SHIFT ASSESSMENT COMPLETE & HS MEDS GIVEN. RIGHT IJ INT'D & PATENT WITH BLOOD RETURN. PT DENIES NEED. CALL LIGHT IN REACH & CHAIR ALARM ON.
--- NOTE | 2024-01-22 23:00 | NUR ---
PT AMBULATED TO BATHROOM WITH X1 ASSIST. BARRIER CREAM APPLIED TO BOTTOM & MEPILEX IN PLACE. PT NOW LAYING IN BED. MEPILEX TO BILATERAL HEELS & GAYMAR BOOTS AND SCDS ON. DENYING NEEDS. CALL LIGHT IN REACH
[2024-01-23] VITALS (14 sets, daily range): BP systolic 99–149; BP diastolic 48–82; PULSE 73–95; TEMP 97.3–98.1
--- NOTE | 2024-01-23 02:30 | NUR ---
Telemetry called and stated patient had Vtach vs PVCs. Patient resting in bed with eyes closed. Awakened easily. BP 99/54, HR 90. Primary care nurse notified.
--- NOTE | 2024-01-23 02:36 | NUR ---
HOSPITALIST Jose KIRKLAND NOTIFIED TELE CALLED & REPORTED PT HAD 5 BEATS OF VTACH. PT RESTING IN BED W/ UNLABORED RESP. VSS. NO NEW ORDERS
[2024-01-23 06:29] LABS: MEAN CELL VOLUME 95 fl (80.0-100.0); MEAN CORPUSCULAR HGB CONC 33 g/dl (33.0-37.0); MEAN PLATELET VOLUME 10.5 fl (7.4-10.4); PLATELET COUNT 216 K/mm3 (130-400); RED BLOOD COUNT 3.13 M/mm3 (4.20-5.60); REDCELL DISTRIBUTION WIDTH-CV 15.3 % (11.5-14.5)
[2024-01-23 06:31] LABS: HEMATOCRIT 29.6 % (42.0-52.0); HEMOGLOBIN 9.7 g/dl (13.5-18.0); MEAN CORPUSCULAR HEMOGLOBIN 31 pg (27-31)
[2024-01-23 06:55] LABS: ALBUMIN 2.2 g/dL (3.4-4.8); BILIRUBIN,TOTAL 0.3 mg/dL (0.2-1.2); CALCIUM 8.8 mg/dL (8.4-10.2); MAGNESIUM 1.7 mg/dL (1.6-2.6); PHOSPHOROUS 3.5 mg/dL (2.3-4.7); POTASSIUM 3.8 mEq/L (3.5-4.5)
[2024-01-23 07:19] LABS: BASOPHIL 1 % (0-2); EOSINOPHIL 4 % (0-4); LYMPHOCYTE 16 % (20.0-51.0); METAMYELOCYTE 1 % (0-0); NEUTROPHILS 77 % (42.0-75.2)
[2024-01-23 07:20] LABS: ANISOCYTOSIS 1+; HYPOCHROMIA 1+
--- NOTE | 2024-01-23 08:45 | NUR ---
PATIENT VERY WHEEZY AND APPEARS SOA IN BED. 02 SATS IN LOW TO MID 90'S ON RA. PATIENT REPORTS HE IS JUST VERY DROWSY. PATIENT HAS SEVERAL PILLOWS BEHIND HIS HEAD, TILTING IT FORWARD. NURSING ASSISTED PATIENT TO BEDSIDE CHAIR, THE ACTIVITY ENCOURAGED SEVERAL COUGHS. PATIENT WHEEZING AND SOA MUCH IMPROVED SITTING UP IN THE CHAIR. UPON AMBULATION TO THE CHAIR, PATIENT HAD LARGE INCONTIENT STOOL ALL OVER BED & FLOOR. PATIENT CLEANED UP, NEW BED LINENS & FLOOR CLEANED. NURSING ALSO NOTED, LEFT FLANK IS RED, WARM TO TOUCH AND PITTING EDEMA, APPEARS LIKE CELLULITIS. RIGHT FLANK IS NORMAL. REPORTED ALL FINDINGS TO HOSPITALIST TEAM, SEE NEW ORDERS. PATIENT REFUSED BREAKFAST TRAY AND DOESN'T WANT TO DRINK HIS NEPRO AT THIS TIME.
[2024-01-23] MEDS ORDERED: Albumin (Human) 25 G/100 ML IVPB IV ONE (09:45)
--- NOTE | 2024-01-23 09:45 | NUR ---
PT ALERT AND SITTING IN CHAIR. MEDS GIVEN PER ORDER. VSS. PT REPORTED FEELING "LOW," BUT WAS UNABLE TO EXPLAIN FURTHER. MEPILEX APPLIED TO BILATERAL HEELS. MEPILEX ON COCCYX. PT DESCRIBED THAT HIS BOTTOM FEELS SORE. EDUCATED PT ON THE IMPORTANCE OF REPOSITIONING AND SUGGESTED GETTING IN BED THIS AFTERNOON TO GET PRESSURE OFF BONY AREAS. SOME REDNESS ON LEFT FLANK. WARM TO TOUCH. PT HAVING SOME DYSPNEA AND WHEEZES ON EXPIRATION. DENIES FURTHER NEEDS. CALL LIGHT IN REACH.
--- NOTE | 2024-01-23 10:00 | NUR ---
PT AT BEDSIDE. UPON AMBULATING PATIENT HAD ANOTHER INCONTINENT LARGE, LIQUID STOOL.
[2024-01-23] MEDS ORDERED: Furosemide 100 MG/10 ML VIAL IV ONE (12:00)
--- NOTE | 2024-01-23 12:50 | NUR ---
STAT CXR ORDERED AT 0930 HAS BEEN OBTAINED BUT NO REPORT. CALLED RADIOLOGY TO FOLLOW UP, AWAITING RESULTS.
--- NOTE | 2024-01-23 12:55 | NUR ---
MARY BETH faxed clinical updates to [facility]
[2024-01-23] MEDS ORDERED: Furosemide 100 MG/10 ML VIAL IV SCH (19:00)
--- NOTE | 2024-01-23 21:00 | NUR ---
PT IS A&O X4 SITTING UP IN CHAIR. VSS. PT STILL APPEARS SOA AT REST BUT NO WHEEZES NOTED. REPORTS PAIN TO HANDS & LEGS STATES THEY FEEL TIGHT, GAVE PRN TYLENOL PER AUG. RT IJ PATENT WITH BLOOD RETURN. PT DENYING OTHER NEEDS. CALL LIGHT IN REACH.
[2024-01-24] VITALS (12 sets, daily range): BP systolic 106–143; BP diastolic 61–86; PULSE 81–89; TEMP 97.2–98.2
--- NOTE | 2024-01-24 01:45 | NUR ---
ENCOURAGED PT TO REPOSITION OUT OF CHAIR TO BED & PUT ON GAYMAR BOOTS, PT REFUSED. PT IS DRINKING NEPRO SHAKE CURRENTLY. DENYING NEEDS. CALL LIGHT IN REACH
--- NOTE | 2024-01-24 05:23 | NUR ---
PT STATES HIS RIGHT HAND IS HURTING & FEELS TIGHT, REFUSES PRN TYLENOL OFFERED. RIGHT HAND REDDENED, WARM, AND MORE EDEMATOUS THAN AT THE BEGINING OF SHIFT.
[2024-01-24 06:19] LABS: ALBUMIN 2.8 g/dL (3.4-4.8); BILIRUBIN,TOTAL 0.4 mg/dL (0.2-1.2); CALCIUM 9.3 mg/dL (8.4-10.2); CREATININE, serum 1.98 mg/dL (0.72-1.25); TOTAL PROTEIN 7.1 g/dl (6.2-8.1)
[2024-01-24 06:25] LABS: HEMOGLOBIN 10.5 g/dl (13.5-18.0); MEAN CELL VOLUME 93 fl (80.0-100.0); MEAN CORPUSCULAR HEMOGLOBIN 30 pg (27-31); MEAN CORPUSCULAR HGB CONC 33 g/dl (33.0-37.0); MEAN PLATELET VOLUME 10.7 fl (7.4-10.4); PLATELET COUNT 261 K/mm3 (130-400); RED BLOOD COUNT 3.46 M/mm3 (4.20-5.60); REDCELL DISTRIBUTION WIDTH-CV 15.2 % (11.5-14.5)
[2024-01-24 06:27] LABS: HEMATOCRIT 32.3 % (42.0-52.0)
[2024-01-24 07:16] LABS: EOSINOPHIL 7 % (0-4); LYMPHOCYTE 23 % (20.0-51.0); METAMYELOCYTE 1 % (0-0)
[2024-01-24 07:17] LABS: ANISOCYTOSIS 1+; NEUTROPHILS 64 % (42.0-75.2); PLATELET ESTIMATE NORMAL (NORMAL)
[2024-01-24] MEDS ORDERED: Furosemide 100 MG/10 ML VIAL IV SCH (08:30)
--- NOTE | 2024-01-24 09:49 | NUR ---
SHIFT ASSESSMENT COMPLETED AT THIS TIME. PT A&OX4. PT DENIES PAIN, SOB, AND NAUSEA AT THIS TIME. PT RESTING IN CHAIR WATCHING TV. FALL PRECAUTIONS IN PLACE. PT HAS NO FURTHER NEEDS AT THIS TIME.
--- NOTE | 2024-01-24 13:08 | NUR ---
DISCHARGE ORDERS RECIEVED AT THIS TIME. DISCHARGE EDUCATION/INSTRUCTIONS PROVIDED AT THIS TIME. PT VOICES UNDERSTANDING. DC'D INT. NO FURTHER NEEDS.
[2024-01-25] VITALS (12 sets, daily range): BP systolic 101–123; BP diastolic 50–68; PULSE 76–100; TEMP 97.7–98.8
--- NOTE | 2024-01-25 04:24 | NUR ---
patient sitting in recliner, alert and oriented x4 with flat affect. denies chest pain and shortness of breath. PICC in [facility] is patent, site is CDI. x6 lap sites, x1 transverse site, BLE +3 pitting edema, BUE +2 pitting edema, right hand with redness and edema, left flank with redness and edema, all CDI. redness to sacral region, left buttock with small blister, heels with redness blanchable and mepilex dressing, all CDI. pt has no further needs, questions or concerns at this time. transfered to bed around 0000 per agreement with pt to give bottom and legs some repositioning and elevation. fall precautions in place, call light within reach. will continue to monitor.
[2024-01-25 06:27] LABS: ALBUMIN 2.4 g/dL (3.4-4.8); BILIRUBIN,TOTAL 0.3 mg/dL (0.2-1.2); CALCIUM 9.2 mg/dL (8.4-10.2); CREATININE, serum 1.73 mg/dL (0.72-1.25); MAGNESIUM 1.3 mg/dL (1.6-2.6); POTASSIUM 3.5 mEq/L (3.5-4.5); TOTAL PROTEIN 6.5 g/dl (6.2-8.1)
[2024-01-25] MEDS ORDERED: Magnesium Sulfate 8% 50 ML IV ONE (08:00)
[2024-01-25] MEDS ORDERED: Furosemide 100 MG/10 ML VIAL IV SCH (08:30)
--- NOTE | 2024-01-25 11:21 | NUR ---
PATIENT ALERT AND ORIENTED X4. VSS. PATIENT HERE FOR SELENE APPY/RUPTURED, EX LAP. LAPS 6 CDI AND KIKE WITH SKIN GLUE, ONE LOW TRANSVERSE SITE CDI AND KIKE WITH SKIN GLUE. RIJ TLC INT AND FLUSH WELL WITH GOOD BLOOD RETURN. PATIENT DENIES ANY PAIN THIS MORNING. PATIENT TOLERATING PO. AM MEDS ADMINISTERED. NO FURTHER NEEDS. CALL LIGHT IN REACH. CHAIR ALARM ON.
--- NOTE | 2024-01-25 13:51 | NUR ---
Sales Ambassador contacted Juana at [facility] and faxed clinical updates for review. No anticipated discharge date set at this time. Discharge Plan: [facility]
--- NOTE | 2024-01-25 20:00 | NUR ---
PATIENT IS ORIENTED BUT DROWSY. VSS. NO COMPLAINTS. LAB LAP SITES WELL APPROXIMATED. ABD IS ROUND WITH BOWL SOUNDS NOTED. PATIENT DENIES NAUSEA BUT REPORTS DECREASED APPETITE AND ONLY ATE A COUPLE BITES OF SUPPER, REFUSED PROTIEN DRINK. HS MEDS GIVEN. RIJ TO INT. VOIDING USING URINAL. NOTED BLE +2 EDEMA, BUE +1 EDEMA. RIGHT HAND STILL RED AND PATIENT REPORTS SKIN IS SENSITIVE, SEE SKIN ASSESSMENT. SPECIALTY MATRESS INPLACE, HEEL PROTECTOR AND FLOATING HEELS. ENCOURAGE ACTIVITY. HEAD TO TOE ASSESSMENT COMPLETE. CALL LIGHT IN REACH.
[2024-01-26] VITALS (10 sets, daily range): BP systolic 101–120; BP diastolic 55–70; PULSE 79–85; TEMP 97.4–98.4
--- NOTE | 2024-01-26 05:30 | NUR ---
PATIENT HAD A LARGE, LOOSE INCONTINENT STOOL. CLEANED PATIENT UP, CHANGED LINEN & GOWN, AND APPLIED NEW MEPILEX DSG TO COCCYX. PATIENT REPOSITIONED UP IN BED, FLOATED BLE WITH PILLOWS AND APPLIED HEEL PROTECTORS. PATIENT RESTING WITH CALL LIGHT IN REACH. BED ALARM ON.
[2024-01-26 06:40] LABS: ALBUMIN 2.6 g/dL (3.4-4.8); BILIRUBIN,TOTAL 0.4 mg/dL (0.2-1.2); CALCIUM 9.2 mg/dL (8.4-10.2); CREATININE, serum 1.83 mg/dL (0.72-1.25); POTASSIUM 3.7 mEq/L (3.5-4.5)
[2024-01-26] MEDS ORDERED: metOLazone 2.5 MG TAB PO ONE (08:15)
[2024-01-26] MEDS ORDERED: Furosemide 100 MG/10 ML VIAL IV ONE ×3 (09:30→14:45)
--- NOTE | 2024-01-26 09:43 | NUR ---
PATIENT ALERT AND ORIENTED X4. VSS. PATIENT HERE FOR UROSEPSIS. BOJORQUEZ TO DD WITH HUBERT OUTPUT. IV TO RIGHT HAND WITH FLUIDS RUNNING AT 75ML/HOUR. PATIENT ON RA. PATIENT TOLERATING PO. AM MEDS ADMINISTERED. NO FURTHER NEEDS. CALL LIGHT IN REACH. BED ALARM ON.
[2024-01-26] MEDS ORDERED: Miconazole 2% Topical Powder BOTTLE TP PRN (09:45)
--- NOTE | 2024-01-26 12:42 | NUR ---
MARY BETH faxed clinical updates to [facility] for probable discharge on Saturday 01/27 Discharge plan: SNF
[2024-01-26] MEDS ORDERED: Furosemide 100 MG in NS 100 ML (AT SET RATE) IV SCH (14:45)
[2024-01-26] MEDS ORDERED: Albumin (Human) 100 ML IV ONE (14:45)
[2024-01-26 22:25] LABS: CALCIUM 9.4 mg/dL (8.4-10.2); CREATININE, serum 1.96 mg/dL (0.72-1.25); MAGNESIUM 1.8 mg/dL (1.6-2.6); POTASSIUM 3.5 mEq/L (3.5-4.5)
--- NOTE | 2024-01-26 22:37 | NUR ---
KEN NOLASCO AT THIS TIME PER ORDER
[2024-01-27] VITALS (13 sets, daily range): BP systolic 97–130; BP diastolic 56–82; PULSE 65–85; TEMP 98–98.7
[2024-01-27 06:58] LABS: ALBUMIN 2.7 g/dL (3.4-4.8); BILIRUBIN,TOTAL 0.5 mg/dL (0.2-1.2); CREATININE, serum 1.89 mg/dL (0.72-1.25); MAGNESIUM 1.7 mg/dL (1.6-2.6); POTASSIUM 3.5 mEq/L (3.5-4.5)
[2024-01-27] MEDS ORDERED: Furosemide 100 MG/10 ML VIAL IV ONE (08:45)
--- NOTE | 2024-01-27 11:01 | NUR ---
MARY BETH faxed updated clinicals to [facility]. MARY BETH reviewed Medicare IM form with patient for probable discharge tomorrow. Patient voiced understanding and signed form. Original on chart and copy to patient. Discharge plan: SNF
--- NOTE | 2024-01-27 11:54 | NUR ---
PATIENT ALERT AND ORIENTED X4. VSS. PATIENT HERE FOR RUPTURED APPY, ABSCESS. PATIENT MORE ALERT TODAY, ATE A LITTLE MORE BREAKFAST TODAY THAN YESTERDAY. RIJ TRIPLE LUMEN ALL LUMENS FLUSH WELL WITH GOOD BLOOD RETURN. PATIENT ON RA. SEE SKIN ASSESSMENT. PATIENT RESTING IN BED WAITING ON THERAPY TO ARRIVE. NO FURTHER NEEDS. CALL LIGHT IN REACH. BED ALARM ON.
--- NOTE | 2024-01-27 17:10 | NUR ---
PATIENT'S APPETITE HAS INCREASED SLIGHTLY TODAY. PATIENT APPEARS TO BE MORE TALKATIVE. LU BOOTS ON WHILE IN BED. DESENEX POWDER APPLIED TO GROIN. MEPILEX DRESSING LEFT OFF PATIENT HAS HAD INCREASED BM'S LATELY AND THE MOISTURE WAS BEING RETAINED UNDER DRESSING. PATIENT EATING DINNER. KITCHEN REMINDED TO STOP SENDING PUREED ITEMS PATIENT IS NOT ON A PUREED DIET.
[2024-01-27] MEDS ORDERED: Furosemide 40 MG/4 ML VIAL IV ONE (17:15)
[2024-01-28 04:00] VITALS: BP 101/52; PULSE 61; TEMP 98.1
[2024-01-28 07:18] LABS: ALBUMIN 2.6 g/dL (3.4-4.8); BILIRUBIN,TOTAL 0.5 mg/dL (0.2-1.2); CALCIUM 8.9 mg/dL (8.4-10.2); CREATININE, serum 2.03 mg/dL (0.72-1.25); POTASSIUM 3.7 mEq/L (3.5-4.5)
[2024-01-28 07:23] VITALS: BP 97/48; PULSE 68; TEMP 98
--- NOTE | 2024-01-28 08:34 | NUR ---
PATIENT ALERT AND ORIENTED X4. VSS. PATIENT HERE FOR RUPTURED APPY, ABSCESS. PATIENT DENIES ANY PAIN THIS AM. RIJ TRIPLE LUMEN WITH LASIX GTT RUNNING AT 5.5ML/HOUR IN WHITE LUMEN. PATIENT ON RA. HEEL PROTECTORS APPLIED BILAT. PATIENT SITTING UP TO EAT BREAKFAST IN BED. SEE SKIN ASSESSMENT. NO FURTHER NEEDS. CALL LIGHT IN REACH. BED ALARM ON.
[2024-01-28] MEDS ORDERED: LASIX 80MG TABL80 MG PO (08:44)
[2024-01-28 09:19] VITALS: BP_SYST 97
--- NOTE | 2024-01-28 10:27 | NUR ---
Patient laying supine in bed. RIJ removed per orders and primary nurse request. Reviewed procedure with patient and patient placed supine. sterile technique used. Sky carl reviewed. Sutures removed. Occlusive dressing with pressure applied and patient reamins flat for 30 minutes.
--- NOTE | 2024-01-28 10:53 | NUR ---
[facility] was contacted by patient's son, Henry (ph#[phone]) inquiring about the discharge plan. SW attended clinical rounds with the team and patient is ready for discharge to [facility]. MARY BETH contacted [place]ana at [facility] and faxed discharge orders. Transport time set for 1100. MARY BETH followed up with Henry to provide transport time. SW also provided transport time to patient. Henry requested SW ensure dentures were packed up with patient, so MARY BETH provided this reminder to [facility]. Discharge Plan: [facility]
[2024-01-28 11:12] VITALS: BP 100/55; PULSE 64; TEMP 98.3
--- NOTE | 2024-01-28 11:39 | NUR ---
TRANSFER PACKET GIVEN TO TRANSPORTER. PATIENT BELONGINGS GATHERED. PATIENT ESCORTED OUT WITH BELONGINGS VIA WHEELCHAIR. ATTEMPTED TO CALL REPORT TO [facility]. LEFT CALL BACK NUMBER.
--- NOTE | 2024-01-28 13:32 | NUR ---
ATTEMPT #2 TO REACH NURSE AT [facility]. REPORT CALLED TO RACHAEL. NUMBER LEFT WITH RACHAEL TO CALL IF THERE WERE ANY QUESTIONS.
== END 2024-01-28 11:30 | DRG 330 ==
LOC: SURG 00:34
PROVIDERS: Hospitalist; Internal Medicine; Nurse Practitioner Family; Physician Assistant; Surgery; ADMIT Internal Medicine
PROC: 8E0W4CZ Robotic Assisted Procedure of Trunk Region, Percutaneous Endoscopic Approach (ICD-10-PCS; 2024-01-05)
PROC: 0DBH4ZZ Excision of Cecum, Percutaneous Endoscopic Approach (ICD-10-PCS; principal; 2024-01-05 12:30)
PROC: 05H533Z Insertion of Infusion Device into Right Subclavian Vein, Percutaneous Approach (ICD-10-PCS; 2024-01-11)
PROC: 8E0W4CZ Robotic Assisted Procedure of Trunk Region, Percutaneous Endoscopic Approach (ICD-10-PCS; 2024-01-15)
PROC: 02HV33Z Insertion of Infusion Device into Superior Vena Cava, Percutaneous Approach (ICD-10-PCS; 2024-01-15)
PROC: 0DN84ZZ Release Small Intestine, Percutaneous Endoscopic Approach (ICD-10-PCS; 2024-01-15 07:30)
DX: K35.33 Acute appendicitis with perforation, localized peritonitis, and gangrene, with abscess (principal); E87.20 Acidosis, unspecified; I48.92 Unspecified atrial flutter; K91.89 Other postprocedural complications and disorders of digestive system; N17.9 Acute kidney failure, unspecified; K91.31 Postprocedural partial intestinal obstruction; E03.9 Hypothyroidism, unspecified; E11.40 Type 2 diabetes mellitus with diabetic neuropathy, unspecified; E78.5 Hyperlipidemia, unspecified; E11.22 Type 2 diabetes mellitus with diabetic chronic kidney disease; I12.9 Hypertensive chronic kidney disease with stage 1 through stage 4 chronic kidney disease, or unspecified chronic kidney disease; L89.621 Pressure ulcer of left heel, stage 1; L89.611 Pressure ulcer of right heel, stage 1; R68.84 Jaw pain; E87.8 Other disorders of electrolyte and fluid balance, not elsewhere classified; J02.9 Acute pharyngitis, unspecified; E88.09 Other disorders of plasma-protein metabolism, not elsewhere classified; M79.675 Pain in left toe(s); N18.30 Chronic kidney disease, stage 3 unspecified; E87.70 Fluid overload, unspecified; M19.90 Unspecified osteoarthritis, unspecified site; E66.9 Obesity, unspecified; Z79.890 Hormone replacement therapy; Z79.899 Other long term (current) drug therapy; Z87.891 Personal history of nicotine dependence; Z23 Encounter for immunization; Z68.34 Body mass index [BMI] 34.0-34.9, adult
CPT/HCPCS: A4314; A9284; C1751; C1892; J0690; J1100; J1644; J1815; J1940; J2270; J2405; J2470; J2543; J2704; J3010; J3411; J3475; J7030; J7050; J7120; P9047; Q9963